=== PATIENT | female | born 1945 | race Caucasian/White ===

== ENCOUNTER → 2017-03-22 | Outpatient (CLI) | payer OTHER | LOC: FIMAGING 19:15 | PROVIDERS: ATTEND Physician Assistant | DX: S46.012A Strain of muscle(s) and tendon(s) of the rotator cuff of left shoulder, initial encounter (principal); S43.492A Other sprain of left shoulder joint, initial encounter; M75.22 Bicipital tendinitis, left shoulder; M75.82 Other shoulder lesions, left shoulder; M19.012 Primary osteoarthritis, left shoulder ==

== ENCOUNTER 2017-08-08 17:40 | Emergency (ER) | payer OTHER ==
[2017-08-08 17:47] VITALS: BP 158/74; PULSE 107; RESP 16; TEMP 97.7; O2SAT 98
[2017-08-08] MEDS ORDERED: IBUPROFEN 600 MG TAB PO ONE (17:58)
--- NOTE | 2017-08-08 18:07 | EDPHY ---
H & P Time Seen by Provider: 08/08/17 17:53 HPI/ROS: This patient describes a mechanical fall on ice to outstretched right hand with pain in the region of the distal radius and anatomical snuffbox. The incident occurred at 4:30 p.m. today and she came in by private vehicle for evaluation of her injury. She reports moderate pain to the area and has not had any pain medication prior to arrival. She did bump her head in addition but denies any LOC or feeling of being dazed. She has no headache. ROS: Neuro: No numbness or tingling. Musculoskeletal: No other injuries Integumentary: No lacerations or abrasions. Cardiovascular: No palpitations or chest pain. 5 point ROS is otherwise negative. Past Medical/Surgical History: History of arthritis with a thumb surgery her right hand in December by Dr. faustin's Hypothyroidism, hypertension Smoking Status: Former smoker Physical Exam: Physical Exam Vital signs are normal. General: No acute distress HEENT: Atraumatic except for minimal occipital tenderness with no hematoma. Neck: No midline tenderness Eyes: Pupils equal and react to light. Extraocular motions are intact. Lungs: No respiratory distress. Cardiac: Brisk capillary refill is intact throughout. Pulses are 2+ and symmetric in the affected extremity. Skin: No rash or pallor. Extremities: Atraumatic normal except for right wrist Right wrist: Patient has anatomical snuffbox tenderness-moderate as well as distal radius tenderness dorsally. No ulnar styloid tenderness or significant volar tenderness. Patient also has increased pain in the region the anatomical snuffbox with axial loading of the right thumb. Neuro: Alert and oriented x3 with no sensorimotor deficits. Initial differential diagnosis: Scaphoid fracture, distal radius fracture, wrist sprain Constitutional: Initial Vital Signs Temperature (C) 36.5 C 08/08/17 17:42 Heart Rate 107 H 08/08/17 17:42 Respiratory Rate 16 08/08/17 17:42 Blood Pressure 158/74 H 08/08/17 17:42 O2 Sat (%) 98 08/08/17 17:42 O2 Delivery Mode Room Air Allergies/Adverse Reactions: cephalexin monohydrate [From Keflex] Allergy (Verified 08/08/17 17:47) RASH/GI meperidine HCl [From Demerol] Allergy (Verified 08/08/17 17:47) Hives Penicillins Allergy (Verified 08/08/17 17:47) Rash Sulfa (Sulfonamide Antibiotics) Allergy (Verified 08/08/17 17:47) Rash Home Medications: Medication Instructions Recorded DULoxetine [Cymbalta] 30 mg PO DAILY 10/30/14 Esomeprazole Magnesium [Nexium 20 mg PO DAILY 10/30/14 24Hr] Galantamine HBr [Galantamine ER] 16 mg PO DAILY06 10/30/14 Glucosamine HCl 500 mg PO DAILY 10/30/14 Levothyroxine [Synthroid] 88 mcg PO DAILY06 10/30/14 Methylphenidate HCl [RITALIN LA] 40 mg PO DAILY06 10/30/14 Montelukast Sodium [Singulair] 10 mg PO DAILY@1800 10/30/14 Multivitamins [Tab-A-Cassandra] 1 each PO DAILY 10/30/14 [place]-3 Fatty Acids [Fish Oil] 1,000 mg PO DAILY 10/30/14 methYLPHENIDATE HCL [Ritalin] 10 mg PO DAILY 10/30/14 MDM/Departure - MDM Diagnostics: Small bone chip present at the base of the 1st metacarpal-rounded question acute versus chronic along with postop changes with hardware present in 1st and 2nd metacarpals. otherwise normal x-rays by my interpretation Imaging Results: Imaging Impressions Wrist X-Ray 08/08/17 17:59 Impression: Suspect nonacute bone chip at the base of the first metacarpal. Otherwise negative for acute posttraumatic change. Please see above. Imaging: I viewed and interpreted images myself Medications Given: Discontinued Medications Ibuprofen (Motrin) 600 mg PO EDNOW ONE Stop: 08/08/17 17:59 Last Admin: 08/08/17 18:17 Dose: 600 mg ED Course/Re-evaluation: The patient is a nurse practitioner. I reviewed her x-ray with her and explained that concern for potential acute chip fracture at the base of the 1st metacarpal. She declines Ortho Glass splint here preferring to use her own Velcro plastic thumb spica splint. She will wear this when she is up and about and follow up with Dr. faustin-her orthopedic physician this week for recheck and further evaluation. After ibuprofen 600 mg here her pain went from 8/10 initially to 4/10. She declined any further analgesics. Discussion: Patient with thumb sprain and chronic postop bone chip versus acute avulsion fracture at base of 1st metacarpal. I counseled the patient regarding this. - Depart Disposition: Home, Routine, Self-Care Clinical Impression: Thumb injury Qualifiers: Encounter type: initial encounter Laterality: right Qualified Code(s): S69.91XA - Unspecified injury of right wrist, hand and finger(s), initial encounter Condition: Good Instructions: Hand Sprain (ED) Additional Instructions: Diagnosis: Thumb injury There is a small bone chip on your x-ray at the base of the thumb that may be old but may be related to today's fall. Cannot rule out acute fracture. Plan: Wear the splint whenever up and about. Ibuprofen Tylenol for pain control Ice 20 min at a time 3 times a day for the next few days in addition Limit activity with the affected hand Call Dr. faustin's to arrange follow-up appointment for recheck sometime within the next 2-5 days. Return for any significant worsening despite the treatment plan Referrals: Lauren Patel MD [Primary Care Provider] - As per Instructions Tashi Faustin MD [Medical Doctor] - As per Instructions
== END 2017-08-08 19:40 | disposition home or self-care (01) ==
LOC: CED 17:40
DX: S69.91XA Unspecified injury of right wrist, hand and finger(s), initial encounter (principal); I10 Essential (primary) hypertension; Z87.891 Personal history of nicotine dependence; W00.9XXA Unspecified fall due to ice and snow, initial encounter
CPT/HCPCS: 73110-PO

== ENCOUNTER → 2018-03-16 | Outpatient (CLI) | payer OTHER | LOC: FIMAGING 18:31 | PROVIDERS: ATTEND Physician Assistant | DX: M75.102 Unspecified rotator cuff tear or rupture of left shoulder, not specified as traumatic (principal); M77.9 Enthesopathy, unspecified ==

== ENCOUNTER → 2018-11-02 | Outpatient (CLI) | payer OTHER | LOC: EMCIMAGING 10:59 | DX: S62.511A Displaced fracture of proximal phalanx of right thumb, initial encounter for closed fracture (principal) | CPT/HCPCS: 73221-PN ==